=== PATIENT | female | born 1980 | race African-American/Black ===

== ENCOUNTER → 2017-11-08 | Outpatient (CLI) | payer BC | END | disposition home or self-care (01) | LOC: KCIC MRI 07:51 | DX: S86.812A Strain of other muscle(s) and tendon(s) at lower leg level, left leg, initial encounter (principal); M17.12 Unilateral primary osteoarthritis, left knee; M76.52 Patellar tendinitis, left knee; X58.XXXA Exposure to other specified factors, initial encounter; Y93.89 Activity, other specified; Y92.89 Other specified places as the place of occurrence of the external cause; Y99.8 Other external cause status | CPT/HCPCS: 73565; 73721 ==

== ENCOUNTER → 2018-01-15 | Outpatient (CLI) | payer BC | END | disposition home or self-care (01) | LOC: ECHO 08:49 | DX: I08.1 Rheumatic disorders of both mitral and tricuspid valves (principal) | CPT/HCPCS: 93306 ==

== ENCOUNTER 2019-10-31 03:25 | Emergency (ER) | payer BC ==
[~2019-10-31] VITALS: Ht 162.6 cm; Wt 96.2 kg
[~2019-10-31 03:25] MED LIST: CIPR500S2 PO; LOSA1TAB22 PO; METR500T PO; NAPR-683 PO
[2019-10-31 03:29] VITALS: BP 125/72
--- NOTE | 2019-10-31 03:46 | PHYS DOC ---
Past Medical History Past Medical History: Anxiety, Depression, Hypertension Additional Past Medical Histor: chronic back pain Past Surgical History: No Surgical History Alcohol Use: Occasionally Drug Use: None Adult General Chief Complaint Chief Complaint: Neck Pain [facility] HPI 39-year-old female with underlying history of hypertension, depression presents to the emergency Department complaints of left neck pain. Patient states pain started on Saturday no injury just stiff to move. States she's been taking Motrin [id number] however no relief. As any numbness or tingling to her upper extremities. She has equal strength pressure bilaterally. She has flat affect on examination. Denies any headache, visual change, chest pain, shortness of breath. All other ROS negative unless documented in HPI Review of Systems Review of Systems See Above Allergies Allergies Allergies Coded Allergies Type Severity Reaction Last Updated Verified bacitracin Allergy Unknown rash 08/10/14 Yes bacitracin zinc Allergy Unknown rash 08/10/14 Yes neomycin sulfate Allergy Unknown rash 08/10/14 Yes polymyxin B Allergy Unknown rash 08/10/14 Yes Physical Exam Physical Exam See Above Constitutional: Well developed, well nourished, no acute distress, non-toxic appearance. [] Neck: Pain with neck movement, TTP on left trapezius [] Cardiovascular:Heart rate regular rhythm, no murmur [] Lungs & Thorax: Bilateral breath sounds clear to auscultation [] Skin: Warm, dry, no erythema, no rash. [] Back: No tenderness, no CVA tenderness. [] Extremities: No tenderness, no edema. [] Neurologic: Alert and oriented X 3, no focal deficits noted. [] Psychologic: flat affect, minimal interaction [] EKG EKG [] Radiology/Procedures Radiology/Procedures [] Course & Med Decision Making Course & Med Decision Making Pertinent Labs and Imaging studies reviewed. (See chart for details) []39-year-old female with underlying history of hypertension, depression presents to the emergency Department complaints of left neck pain. Patient states pain started on Saturday no injury just stiff to move. States she's been taking Motrin [id number] however no relief. As any numbness or tingling to her upper extremities. She has equal strength pressure bilaterally. She has flat affect on examination. Denies any headache, visual change, chest pain, shortness of breath. Norflex 60mg IM, [id number] IM Recommend follow up with PCP Muscle strain appreciated Return precautions provided Matthias Disclaimer Matthias Disclaimer This electronic medical record was generated, in whole or in part, using a voice recognition dictation system. Departure Departure Impression: Primary Impression: Muscle pain, cervical Disposition: HOME, SELF-CARE Condition: STABLE Referrals: NO PCP (PCP) Patient Instructions: Muscle Cramps, [id number] Additional Instructions: Recommend follow up with PCP 3 - 5 days Return to the ER with worsening symptoms, intractable pain, fever, altered mental status Tylenol/Motrin as needed for pain Patient states she as muscle relaxers at home Toradol IM/Norflex IM provided in ER for pain/spasm HEMANTH RAYMUNDO MD Oct 31, 2019 03:46
[2019-10-31] MEDS ORDERED: KETOROLAC 60 MG/2 ML VIAL. IM ONE (04:00)
[2019-10-31] MEDS ORDERED: ORPHENADRINE CITRATE 60 MG/2 ML VIAL. IM ONE (04:00)
== END 2019-10-31 04:04 | disposition home or self-care (01) ==
LOC: ER 03:25
DX: G89.29 Other chronic pain (principal); M54.2 Cervicalgia; F41.9 Anxiety disorder, unspecified; F32.9 Major depressive disorder, single episode, unspecified; I10 Essential (primary) hypertension; Z88.1 Allergy status to other antibiotic agents
CPT/HCPCS: 96372; 99284; J1885; J2360